=== PATIENT | female | born 1995 | race Caucasian/White ===

== ENCOUNTER 2018-05-06 09:50 | Emergency (ER) | payer OTHER ==
--- NOTE | 2018-05-06 10:13 | ER Document Report ---
ED Medical Screen (RME) - General Chief Complaint: Chemical Exposure in Eye Stated Complaint: EYE IRRITATION Time Seen by Provider: 05/06/18 10:09 Mode of Arrival: Ambulatory Information source: Patient Notes: 22-year-old female presents with left eye pain after using a new contact solution. Patient was seen at [facility] yesterday and started on artificial tears and cyclopentolate ophthalmic drops. Patient does report having left her contact in her eye for 48 hours prior to using the solution. I have greeted and performed a rapid initial assessment of this patient. A comprehensive ED assessment and evaluation of the patient, analysis of test results and completion of medical decision making process we will be contacted by additional ED providers. General; appears uncomfortable Eyes; erythematous left conjunctive a Respiratory; no respiratory distress TRAVEL OUTSIDE OF THE [place] IN LAST 30 DAYS: No - HPI Onset: Yesterday Onset/Duration: Sudden Quality of pain: Burning, Throbbing Associated Symptoms: Headache, Other - Photophobia. Blurred vision Exacerbated by: Denies Relieved by: Denies Similar symptoms previously: No Recently seen / treated by doctor: No - Related Data Smoking: Non-smoker Frequency of alcohol use: None Drug Abuse: None Allergies/Adverse Reactions: No Known Allergies Allergy (Unverified 05/06/18 09:52) Past Medical History Renal/ Medical History: Denies: Hx Peritoneal Dialysis Physical Exam - Vital signs Vitals: Temp Pulse Resp BP Pulse Ox 98.2 F 85 16 126/90 H 99 05/06/18 09:55 05/06/18 09:55 05/06/18 09:55 05/06/18 09:55 05/06/18 09:55 Course - Vital Signs Vital signs: Temp Pulse Resp BP Pulse Ox 98.2 F 85 16 126/90 H 99 05/06/18 09:55 05/06/18 09:55 05/06/18 09:55 05/06/18 09:55 05/06/18 09:55
[2018-05-06] MEDS ORDERED: TETRACAINE HCL 0.5% OPH SOLN 4 ML OS ONE (10:15)
--- NOTE | 2018-05-06 10:26 | ER Document Report ---
ED General - General Chief Complaint: Chemical Exposure in Eye Stated Complaint: EYE IRRITATION Time Seen by Provider: 05/06/18 10:09 Mode of Arrival: Ambulatory TRAVEL OUTSIDE OF THE [place] IN LAST 30 DAYS: No - HPI Notes: Patient is a 22-year-old female with no significant past medical history who presents to the ED complaining of chemical burn to her left eye. Patient states that hydrogen peroxide was used to clean her contact lens, but she did not thoroughly clean it prior to putting it in her eye. Patient states that she noticed burning immediately to the left eye. Patient states that she was evaluated at [facility] emergency department yesterday and was placed on artificial tears as well as cyclopentolate. Patient states that she does continue to have pain to the left eye with redness and decrease in vision. She denies any drug allergies. Denies any headache, fever, head injury, neck pain, URI, sore throat , chest pain, palpitations, syncope, cough, shortness of breath, wheeze, dyspnea , abdominal pain, nausea/vomiting/diarrhea, urinary retention, dysuria, hematuria, numbness/tingling, muscle paralysis/weakness, or rash. - Related Data Allergies/Adverse Reactions: No Known Allergies Allergy (Verified 05/06/18 10:40) Past Medical History - General Information source: Patient - Social History Smoking Status: Current Some Day Smoker Frequency of alcohol use: None Drug Abuse: None Family History: Reviewed & Not Pertinent Patient has suicidal ideation: No Patient has homicidal ideation: No Renal/ Medical History: Denies: Hx Peritoneal Dialysis Review of Systems - Review of Systems -: Yes All other systems reviewed and negative Physical Exam - Vital signs Vitals: Temp Pulse Resp BP Pulse Ox 98.2 F 85 16 126/90 H 99 05/06/18 09:55 05/06/18 09:55 05/06/18 09:55 05/06/18 09:55 05/06/18 09:55 - Notes Notes: PHYSICAL EXAMINATION: GENERAL: Well-appearing, well-nourished and in no acute resp distress. Covering left eye with cool compress currently. A&Ox4 HEAD: Atraumatic, normocephalic. EYES: Pupils equal round and reactive to light, extraocular movements intact, sclera anicteric, conjunctiva left shows episcleritis b/l w/teary discharge no matting. Non-tender to palp of the globe and eye itself. No surrounding erythema or swelling noted. Wood's lamp/flourescein: No obvious abrasion, laceration, ulceration, or sharri sign noted. There is scant scattered minimal uptake noted, however. No obvious foreign body appreciated. ENT: EAC clear b/l. TM's intact b/l without erythema, fluid, or perforation. Nares patent and without discharge. oropharynx clear without exudates. No tonsilar hypertrophy or erythema. Moist mucous membranes. No sinus tenderness. Uvula midline. No palatine shift. No airway compromise. No drooling or hoarseness. NECK: Normal range of motion, supple without lymphadenopathy. No rigidity/ meningismus. LUNGS: Breath sounds clear to auscultation bilaterally and equal. No wheezes rales or rhonchi. HEART: Regular rate and rhythm without murmurs, rubs, gallops. NEUROLOGICAL: Cranial nerves grossly intact. Normal speech, normal gait. Normal sensory, motor exams PSYCH: Normal mood, normal affect. SKIN: Warm, Dry, normal turgor, no rashes or lesions noted. - HEENT Visual acuity- Right eye: 20/40 Visual acuity- Left eye: 20/200 Visual acuity- Both eyes: 20/40 Corrective lenses worn: No Course - Re-evaluation Re-evalutation: 05/06/18 10:[address] Kitchen who is in agreement with disposition and plan. Patient is an afebrile, well-hydrated, 22-year-old female who presents to the ED with mild acid chemical burn to the left eye. Vitals are acceptable. PE is otherwise unremarkable. Patient is already on artificial tears, cyclopentolate , and we will add Besivance to her current regimen. Tetracaine did improve symptoms. See eye exam. Low suspicion for any retained corneal or lid foreign body, deep space infection including orbital cellulitis/abscess, acute glaucoma , penetrating globe injury, retinal detachment, meningitis, sepsis, fracture, ulceration, compartment syndrome. Conservative measures otherwise for symptoms with proper handwashing. Recheck with your PCM in 3-5 days. Schedule a f/u with Ophthalmology this week. Return to the ED with any worsening/concerning symptoms otherwise as reviewed in discharge. Patient is in agreement. - Vital Signs Vital signs: Temp Pulse Resp BP Pulse Ox 98.2 F 85 16 126/90 H 99 10/07/18 09:55 05/06/18 09:55 05/06/18 09:55 05/06/18 09:55 05/06/18 09:55 Procedures - Eye Procedure Left Time completed: 10:35 - no complications. pt tolerated proc well Eye Irrigated w/ Saline (ccs): 20 Alcaine Drops Administered: Yes - tetracaine Acular drops administered: Left Antibiotic Oinment/Drps Admin: Left eye Discharge - Discharge Clinical Impression: Acid chemical burn of left eye Condition: Stable Disposition: HOME, SELF-CARE Additional Instructions: Keep eyes clean Avoid scratching/touching eyes Wash hands regularly Use eye drops as directed Maintain adequate fluid intake tylenol/ibuprofen as needed over the counter cold medication as needed for symptoms F/u: with your PCM in 3-5 days for a recheck Call ophthalmology tomorrow to schedule an appointment for further evaluation and management Return to the ED with any worsening symptoms and/or development of fever, headache, changes in vision, eye pain, worsening eye redness, redness around the eyes, purulent discharge, sore throat, facial swelling, neck pain/stiffness , chest pain, palpitations, syncope, shortness of breath, trouble breathing, abdominal pain, n/v/d, blood in stool/urine, dysuria, or other worsening symptoms that are concerning to you. Forms: Elevated Blood Pressure Referrals: MEL BAKER MD [ACTIVE STAFF] - 05/08/18 SHALINI SPEARS DO [ACTIVE STAFF] - 05/08/18
[2018-05-06] MEDS ORDERED: BESIFLOXACIN HCL 0.6% OPH SUSP 5 ML BOTTLE OS PRN (10:41)
[2018-05-06 11:13] VITALS: BP 101/60
== END 2018-05-06 11:16 | disposition home or self-care (01) ==
LOC: ER 09:50
DX: T49.0X1A Poisoning by local antifungal, anti-infective and anti-inflammatory drugs, accidental (unintentional), initial encounter (principal); T26.82XA Corrosions of other specified parts of left eye and adnexa, initial encounter; Y92.009 Unspecified place in unspecified non-institutional (private) residence as the place of occurrence of the external cause; F17.200 Nicotine dependence, unspecified, uncomplicated
CPT/HCPCS: 99283; J3490

== ENCOUNTER 2019-07-23 05:22 | Day surgery (SDC) | payer OTHER ==
[2019-07-23 05:55] LABS: HEMATOCRIT 38.9 % (36.0-47.0); HEMOGLOBIN 13.4 g/dL (12.0-15.5); MEAN CORPUSCULAR HEMOGLOBIN 29.7 pg (27.0-33.4); MEAN CORPUSCULAR HGB CONC 34.4 g/dL (32.0-36.0); MEAN CORPUSCULAR VOLUME 86 fl (80-97); PLATELET COUNT 316 10^3/uL (150-450); RED BLOOD COUNT 4.51 10^6/uL (3.72-5.28); RED CELL DISTRIBUTION WIDTH 12.5 % (11.5-14.0); WHITE BLOOD COUNT 7.6 10^3/uL (4.0-10.5)
[2019-07-23 06:40] LABS: APPEARANCE,URINE SLIGHTLY-CLOUDY; BILIRUBIN,URINE NEGATIVE (NEGATIVE); COLOR,URINE YELLOW; GLUCOSE, URINE NEGATIVE (NEGATIVE); KETONES,URINE NEGATIVE (NEGATIVE); LEUKOCYTE ESTERASE,URINE SMALL (NEGATIVE); NITRITE,URINE NEGATIVE (NEGATIVE); PROTEIN,URINE NEGATIVE (NEGATIVE); URINE SPECIFIC GRAVITY 1.019; UROBILINOGEN,URINE NEGATIVE mg/dL (<2.0)
[2019-07-23] MEDS ORDERED: DEXAMETHASONE SOD PHOSPHATE INJ 4 MG/1 ML VIAL ONE (06:42)
[2019-07-23] MEDS ORDERED: FENTANYL CITRATE INJ/PF 100 MCG/2 ML AMPUL ONE (06:42)
[2019-07-23] MEDS ORDERED: MIDAZOLAM 2 MG/2 ML INJ ONE (06:42)
[2019-07-23] MEDS ORDERED: PROPOFOL INJ 200 MG/20 ML VIAL IV ONE (06:42)
[2019-07-23] MEDS ORDERED: ONDANSETRON HCL INJ/PF 4 MG/2 ML SDV ONE (06:42)
[2019-07-23] MEDS ORDERED: MEPERIDINE HCL/PF INJ 25 MG/1 ML DISP.SYRIN IV PRN (08:25)
[2019-07-23] MEDS ORDERED: MORPHINE SULFATE 10 MG/ML INJ IV PRN (08:25)
[2019-07-23] MEDS ORDERED: PROMETHAZINE HCL INJ 25 MG/1 ML VIAL IV PRN ×2 (08:25)
[2019-07-23] MEDS ORDERED: DIPHENHYDRAMINE HCL 50 MG/ML VIAL IV PRN (08:25)
[2019-07-23] MEDS ORDERED: FENTANYL CITRATE INJ/PF 100 MCG/2 ML AMPUL IV PRN ×3 (08:25)
[2019-07-23] MEDS ORDERED: IBUPROFEN 800 MG TABLET PO PRN (08:42)
[2019-07-23] MEDS ORDERED: RINGERS SOLUTION,LACTATED 1,000 ML IV PRN (08:42)
[2019-07-23] MEDS ORDERED: KETOROLAC TROMETHAMINE INJ/PF 30 MG/1 ML SDV IV PRN (08:42)
[2019-07-23] MEDS ORDERED: OXYCODONE-ACETAMINOPHEN 5-325 MG TABLET PO PRN ×2 (08:42)
--- NOTE | 2019-07-23 08:48 | Operative Report ---
Operative Report DATE OF SURGERY: 07/23/19 PREOPERATIVE DIAGNOSIS: Patient requests suction D&C for miscarriage POSTOPERATIVE DIAGNOSIS: Same OPERATION: Suction D&C SURGEON: STEFANY BENITO ANESTHESIA: GA TISSUE REMOVED OR ALTERED: Uterine contents COMPLICATIONS: None ESTIMATED BLOOD LOSS: 20 cc INTRAOPERATIVE FINDINGS: Uterus sounded to 10 cm before the case and 8 cm after the case PROCEDURE: Patient was taken the OR and placed in supine position. Anesthesia was induced. She is placed in a dorsolithotomy position using Dav stirrups. Her perineum and vagina were prepared and draped in sterile fashion. She had just voided and catheter was not used. A weighted speculum was placed in the vagina and the anterior lip of the cervix was grasped with a tenaculum. The uterus was sounded before and after the case. 10 cm before and an 8 cm after the case. Cervix was gently dilated. This allowed a size 8 curved curette to be used to evacuate the uterine contents. A gentle sharp curettage was then used after the case and no retained products were noted. All instruments were removed. A small laceration at the anterior cervix from the tenaculum was closed with a [id number] suture of 3-0 chromic. The weighted speculum was removed. She is placed back in supine position. She was brought out of anesthesia and taken to recovery room in stable condition.
--- NOTE | 2019-07-23 08:51 | Discharge Summary ---
Discharge Summary (SDC) - Discharge Final Diagnosis: Miscarriage Date of Surgery: 07/23/19 Discharge Date: 07/23/19 Condition: Good Prescriptions: Oxycodone HCl/Acetaminophen [Percocet 5-325 mg Tablet] 1 tab PO Q4HP PRN #20 tablet PRN Reason: Referrals: LUDY DOAN PA-C [Primary Care Provider] - Discharge Diet: Regular Discharge Activity: Pelvic Rest, Slowly Increase Activity Report the Following to Your Physician Immediately: Fever over 101 Degrees, Unusual Bleeding
[2019-07-23 10:40] VITALS: BP 139/93
== END 2019-07-23 10:25 | disposition home or self-care (01) ==
LOC: OROUT 05:22
PROVIDERS: ATTEND Obstetrics & Gynecology
DX: O02.1 Missed abortion (principal); Z87.891 Personal history of nicotine dependence; O03.4 Incomplete spontaneous abortion without complication
CPT/HCPCS: 86900; 86901; 36415; 86850; 85027; 81001; 88305 ×2; 59820; J2250; J1100; J3010; J2405; J2704; 1965

== ENCOUNTER 2020-08-14 03:44 | Inpatient (IN) | payer BC ==
[2020-08-14] MEDS ORDERED: OXYTOCIN/0.9 % SODIUM CHLORIDE 30 UNIT/500 ML RTUINJ ONE (04:40)
[2020-08-14] MEDS ORDERED: OXYTOCIN 10 UNIT/ML VIAL ONE (04:40)
[2020-08-14] MEDS ORDERED: LIDOCAINE 1% INJ-PF (10 MG/ML) 30 ML SDV ONE (04:40)
[2020-08-14] MEDS ORDERED: MISOPROSTOL 0.2 MG TABLET ONE (04:40)
[2020-08-14] MEDS ORDERED: DINOPROSTONE 10 MG VAGINAL INSERT.SR ONE (04:41)
[2020-08-14] MEDS ORDERED: RINGERS SOLUTION,LACTATED 1,000 ML IV PRN (05:02)
[2020-08-14] MEDS ORDERED: DINOPROSTONE 10 MG VAGINAL INSERT.SR PV PRN (05:02)
[2020-08-14] MEDS ORDERED: RINGERS SOLUTION,LACTATED 1,000 ML IV ONE (05:02)
[2020-08-14 06:13] LABS: APPEARANCE,URINE SLIGHTLY-CLOUDY; BILIRUBIN,URINE NEGATIVE (NEGATIVE); COLOR,URINE YELLOW; GLUCOSE, URINE NEGATIVE (NEGATIVE); KETONES,URINE NEGATIVE (NEGATIVE); LEUKOCYTE ESTERASE,URINE TRACE (NEGATIVE); NITRITE,URINE NEGATIVE (NEGATIVE); PROTEIN,URINE NEGATIVE (NEGATIVE); URINE SPECIFIC GRAVITY 1.016; UROBILINOGEN,URINE NEGATIVE mg/dL (<2.0)
[2020-08-14 06:13] LABS: ABSOLUTE BASOPHILS # (AUTO) 0.1 10^3/uL (0.0-0.2); ABSOLUTE EOSINOPHILS # (AUTO) 0.1 10^3/uL (0.0-0.6); ABSOLUTE LYMPHOCYTES (AUTO) 2.2 10^3/uL (0.5-4.7); ABSOLUTE MONOCYTES (AUTO) 1.1 10^3/uL (0.1-1.4); ABSOLUTE NEUT (AUTO) 7.5 10^3/uL (1.7-8.2); BASOPHILS % (AUTO) 0.5 % (0-2); EOSINOPHILS % (AUTO) 0.9 % (0-6); HEMATOCRIT 34.4 % (36.0-47.0); HEMOGLOBIN 11.9 g/dL (12.0-15.5); LYMPHOCYTES % (AUTO) 20.3 % (13-45); MEAN CORPUSCULAR HEMOGLOBIN 29.9 pg (27.0-33.4); MEAN CORPUSCULAR HGB CONC 34.4 g/dL (32.0-36.0); MEAN CORPUSCULAR VOLUME 87 fl (80-97); PLATELET COUNT 244 10^3/uL (150-450); RED BLOOD COUNT 3.96 10^6/uL (3.72-5.28); RED CELL DISTRIBUTION WIDTH 13.9 % (11.5-14.0); SEGMENTED NEUTROPHILS % (AUTO) 68.3 % (42-78); TOTAL CELLS COUNTED % (AUTO) 100 %
[2020-08-14 06:26] LABS: ALBUMIN 3.3 g/dL (3.5-5.0); ALKALINE PHOSPHATASE 100 U/L (38-126); ANION GAP 7 (5-19); ASPARTATE AMINO TRANSFERASE 17 U/L (14-36); BILIRUBIN,DIRECT 0.2 mg/dL (0.0-0.4); BILIRUBIN,TOTAL 0.3 mg/dL (0.2-1.3); BLOOD UREA NITROGEN 8 mg/dL (7-20); CALCIUM 9.3 mg/dL (8.4-10.2); CARBON DIOXIDE 21 mmol/L (22-30); CHLORIDE 107 mmol/L (98-107); GLUCOSE 86 mg/dL (75-110); URIC ACID 4.8 mg/dL (2.5-6.2)
[2020-08-14 06:36] LABS: URINE AMPHETAMINES SCREEN NEGATIVE; URINE BARBITURATES SCREEN NEGATIVE; URINE BENZODIAZEPINES SCREEN NEGATIVE; URINE COCAINE SCREEN NEGATIVE; URINE MARIJUANA (THC) SCREEN NEGATIVE; URINE METHADONE SCREEN NEGATIVE; URINE PHENCYCLIDINE SCREEN NEGATIVE
--- NOTE | 2020-08-14 08:32 | Admission Physical ---
Datetime Report Generated by CPN: 08/14/2020 08:32 CURRENT ADMISSION Indication for Induction: Gestational HTN Admit Impression : Term, Intrauterine Admit Plan: Admit to Unit; Initiate Labor Induction Protocol ALLERGIES Medication Allergies: Yes Medication Allergies: amoxicillin (08/14/2020) Latex: No Latex Allergies OBSTETRICAL HISTORY EDC: 08/27/2020 00:00 : 2 Para: 0 Gestational Diabetes: No Rh Sensitization: No Incompetent Cervix: No TOÑO: No Infertility: No ART Treatment: No Uterine Anomaly: No IUGR: No Hx Previous C/S: No Macrosomia: No Hx Loss/Stillborn: No PIH: No Hx : No Placenta Previa/Abruption: No Depression/PP Depression: No PTL/PROM: No Post Hemorrhage: No Current Procedures: Ultrasound; NST SEE RECORDS Alcohol: No Marijuana : No Cocaine: No Other Illicit Drugs: No Cigarettes: Former Smoker. [id number] Cigarette Frequency: < 5 per day MEDICAL HISTORY Diabetes: No Blood Transfusion: No Pulmonary Disease (Asthma, TB): Yes Breast Disease: No Hypertension: No Dietary Services Director Surgery: No Heart Disease: No Hosp/Surgery: Yes Autoimmune Disorder: No Anesthetic Complications: No Kidney Disease: No Abnormal Pap Smear: No Neuro/Epilepsy: No Psychiatric Disorders: No Other Medical Diseases: No Hepatitis/Liver Disease: No Significant Family History: No Varicosities/Phlebitis: No Trauma/Violence : No Thyroid Dysfunction: No Medical History Comments: D_c 2019, wisdom teeth 2011 INFECTIOUS HISTORY Gonorrhea: No Genital Herpes: No Chlamydia: No Tuberculosis: No Syphilis: No Hepatitis: No HIV/AIDS Exposure: No Rash or Viral Illness: No HPV: No PHYSICAL EXAM General: Normal HEENT: Normal Neurologic: Normal Thyroid: Normal Heart: Normal Lungs: Normal Breast: Normal Back: Normal Abdomen: Normal Genitourinary Exam: Normal Extremities: Normal DTRs: Normal Pelvic Type: Adequate Vital Signs: Reviewed MEMBRANES Membranes: Intact FETUS A Monitoring: External US FHR- Baseline: 125 Variability: Moderate 6-25bpm Accelerations: 15X15 Decelerations: None Admit Comment: at 38.1 wks presented early this morning for cervical ripening d/t GHTN. Elevated BP's in the office since 35 wks. Pt on labetalol 200 mg PO BID. States did have a headache this moring, better now. GBS negative. EFW by u/s 6+15 and Vtx on 08/12/20. Ve in the office then was 50/-1 by my exam. Cervidil placed at 0452 this morning. Pt attempting to rest now, denies contractions. Attending MD today is Dr Hummel, aware of pt status, agrees w/ plan of care PLANS FOR LABOR AND DELIVERY Labor and Delivery: None Pain Management: Epidural Feeding Preference: Breast Circumcision: N/A INFORMED CONSENT Assignment: Delfina Hummel MD Signature: with User ID: [email or web address] : with User ID: [email or web address]
[2020-08-14] MEDS ORDERED: LABETALOL HCL 200 MG TABLET ONE ×2 (09:42→21:36)
[2020-08-14] MEDS: LABETALOL HCL 200 MG TABLET PO SCH (09:44)
--- NOTE | 2020-08-14 14:43 | L&D Progress Notes ---
PROGRESS NOTES Datetime Report Generated by CPN: 08/14/2020 14:42 PROGRESS NOTE Impression: Reassuring Heart Rate Plan: Continue Present Management; Induction Vital Signs : Reviewed Comment: Cervidil in place for IOL. Pt in the bed on her side w/ peanut ball between her legs. Does have mild headache, states it does not feel like a "BP" headache. Occassional was feeling some contractions but now only mild menstrual cramping. Position changes encouraged. LAST VAGINAL EXAM-NURSING Nursing Exam Dilitation: 1.0 Nursing Exam Effacement: 50 Nursing Exam Station: -2 MEMBRANES Membranes: Intact FETUS A FHR - Baseline: 145 Monitoring: External US Variability: Moderate 6-25bpm Accelerations: 15X15 Decelerations: None FHR Category: Category I SIGNATURE SIGNATURE: [id number];[id number] Assignment: Delfina Hummel MD Signature: with User ID: [email or web address] : with User ID: [email or web address]
[2020-08-14] MEDS ORDERED: ZOLPIDEM TARTRATE 5 MG TABLET ONE (21:37)
[2020-08-15] MEDS ORDERED: OXYTOCIN/0.9 % SODIUM CHLORIDE 30 UNIT/500 ML RTUINJ IV PRN ×2 (00:02→14:06)
[2020-08-15] MEDS ORDERED: PROMETHAZINE HCL INJ 25 MG/1 ML VIAL ONE (05:26)
[2020-08-15] MEDS ORDERED: NALBUPHINE HCL INJ 10 MG/1 ML AMPULE ONE ×2 (05:26→05:33)
[2020-08-15] MEDS ORDERED: NALBUPHINE HCL INJ 10 MG/1 ML AMPULE IV ONE (05:27)
[2020-08-15] MEDS ORDERED: PROMETHAZINE HCL INJ 25 MG/1 ML VIAL IV ONE (05:28)
[2020-08-15] MEDS: LABETALOL HCL 200 MG TABLET PO SCH ×3 (07:15→21:09)
[2020-08-15] MEDS ORDERED: LABETALOL HCL 200 MG TABLET ONE (09:11)
[2020-08-15] MEDS ORDERED: FENTANYL/BUPIVACAINE/NS/PF 300 MCG/150 ML RTUINJ EPI ONE (09:12)
[2020-08-15] MEDS ORDERED: EPHEDRINE SULFATE INJ 50 MG/1 ML AMPULE ONE (09:12)
[2020-08-15] MEDS ORDERED: ROPIVACAINE HCL 0.2% INJ/PF (2 MG/ML) 20 ML SDV ONE (09:12)
[2020-08-15] MEDS ORDERED: MAGNESIUM HYDROXIDE SUSP 30 ML UDCUP PO PRN (14:06)
[2020-08-15] MEDS ORDERED: MAG HYDROX/AL HYDROX/SIMETH SUSP 30 ML UDCUP PO PRN (14:06)
[2020-08-15] MEDS ORDERED: FAMOTIDINE 20 MG TABLET PO PRN (14:06)
[2020-08-15] MEDS ORDERED: PSEUDOEPHEDRINE HCL 30 MG TABLET PO PRN (14:06)
[2020-08-15] MEDS ORDERED: DIPH/PERTUSS(ACELL)/TETANUS VAC/PF 0.5 ML SYR (>=10YO) IM PRN (14:06)
[2020-08-15] MEDS ORDERED: VARICELLA VACC/PF (1350 UNIT/0.5 ML) 0.5 ML VIAL SUBCUT PRN (14:06)
[2020-08-15] MEDS ORDERED: ACETAMINOPHEN 650 MG SUPP.RECT PR PRN (14:06)
[2020-08-15] MEDS ORDERED: BENZOCAINE/MENTHOL AEROSOL SPRAY 56 ML TOP PRN (14:06)
[2020-08-15] MEDS ORDERED: GLYCERIN/WITCH HAZEL LEAF 1 EACH MED..WIPE TP PRN (14:06)
[2020-08-15] MEDS ORDERED: ZOLPIDEM TARTRATE 5 MG TABLET PO PRN (14:06)
[2020-08-15] MEDS ORDERED: MEASLES,MUMPS&RUBELLA VACC/PF 0.5 ML VIAL SUBCUT PRN (14:06)
[2020-08-15] MEDS ORDERED: ACETAMINOPHEN 325 MG TABLET PO PRN (14:06)
[2020-08-15] MEDS ORDERED: DIPHENHYDRAMINE HCL 25 MG CAPSULE PO PRN (14:06)
[2020-08-15] MEDS ORDERED: ACETAMINOPHEN WITH CODEINE #3 TABLET PO PRN (14:06)
[2020-08-15] MEDS ORDERED: DIBUCAINE 1% OINTMENT 28 GM TP PRN (14:06)
[2020-08-15] MEDS ORDERED: BENZOCAINE/MENTHOL AEROSOL SPRAY 56 ML ONE (15:37)
--- NOTE | 2020-08-15 16:23 | Delivery Summary ---
Del Sum A-C Datetime Report Generated by CPN: 08/15/2020 16:22 DELIVERY PERSONNEL DELIVERY PERSONNEL: [id number] Delivery Doctor:: Lori Gomes CNM Labor and Delivery Nurse:: Concha Agarwal RNmiller helper distillery Nurse:: Katelynn Bales RN Nursery Nurse:: Karlee Medrano RN Manager Public/GUM SPRAYER: Lyndsay López, BLOOD BANK CALENDAR CONTROL CLERK MATERNAL INFORMATION Delivery Anesthesia: Epidural Medications After Delivery: Pitocin 30 Units in 500ml NS/D5W Delivery QBL: 200 Maternal Complications: None Provider Comments: of VFI, delivered BOBO, vigorous and crying, placed on pts abdoman in stable condition. Cord clamped and cut, cord blood collected. Placenta S/C/I, ff w/ decreased lochia. IV Pitocin infusing. Vaginal laceration repaired. QBL 300 ml. Apgars 9,9. Placenta to pathology d/t hx GHTN. Pt and baby in stable condition, skin to skin. Plans to breastfeed. Attending MD is Dr Brito LABOR SUMMARY EDC: 08/27/2020 00:00 No. Babies in Womb: 1 Attempted: No Labor Anesthesia: Epidural LABOR INFORMATION Reason for Induction: Gestational Hypertension; Pre-Eclampsia Onset of Labor: 08/15/2020 11:00 Complete Dilatation: 08/15/2020 12:59 Cervical Ripening Agents: Cervidil Oxytocin: Induction Group B Beta Strep: negative (Annotations: Data stored by N on behalf of user) MEMBRANES Membranes Rupture Method: Spontaneous Rupture of Membranes: 08/15/2020 11:00 Length of Rupture (hr): 2.80 Amniotic Fluid Color: Clear Amniotic Fluid Amount: Small STAGES OF LABOR Stage 1 hr: 1 Stage 1 min: 59 Stage 2 hr: 0 Stage 2 min: 49 Stage 3 hr: 0 Stage 3 min: 3 Total Time in Labor hr: 2 Total Time in Labor min: 51 VAGINAL DELIVERY Episiotomy: None Laceration #1: Vaginal Laceration Extension #1: First Degree Other Laceration: L sidewall Laceration Repair: Yes Laceration Repair Note: first degree left vaginal sidewall repaired w/ 3.0 vicryl in usual fashion, pt tolerated well Sponge Count Correct: Yes Sharps Count Correct: Yes CSECTION DELIVERY Primary Indication: N/A Secondary Indication: N/A CSection Incidence: N/A Labor: N/A Elective: N/A CSection Incision: N/A BABY A INFORMATION Delivery Date/Time: 08/15/2020 13:48 Method of Delivery: Vaginal Nurse Controlled Delivery: No Born in Route : No : N/A Forceps: N/A Vacuum Extraction: N/A Shoulder Dystocia : No PRESENTATION/POSITION BABY A Presentation: Cephalic Cephalic Presentation: Vertex Vertex Position: Right Occipital Anterior Breech Presentation: N/A PLACENTA INFORMATION BABY A Placenta Delivery Time : 08/15/2020 13:51 Placenta Method of Delivery: Spontaneous Placenta Status: Delivered SCORES BABY A Heart Rate 1 min: >100 bpm Resp Effort 1 min: Good Cry Reflex Irritability 1 min: Cough or Sneeze or Pulls Away Muscle Tone 1 min: Active Motion Color 1 min: Body [place], Extremities Blue Resuscitation Effort 1 min: Tactile Stimulation SCORE 1 MIN: 9 Heart Rate 5 min: >100 bpm Resp Effort 5 min: Good Cry Reflex Irritability 5 min: Cough or Sneeze or Pulls Away Muscle Tone 5 min: Active Motion Color 5 min: Body [place], Extremities Blue Resuscitation Effort 5 min: N/A SCORE 5 MIN: 9 INFORMATION BABY A Gestational Age at Delivery: 38.2 Gestational Status: Early Term- 37- 38.6 Weeks Infant Outcome : Liveborn Condition : Stable Sex: Female IDENTIFICATION BABY A Infant Verification Date/Time: 08/15/2020 13:54 ID Band Number: [id number] Mother's Name Verified: Yes Infant RN Verifying : Sana Ellington SANDRA; ROEL Marshall CORD INFORMATION BABY A No. Cord Vessels: 3 Nuchal Cord : N/A Cord Blood Taken: Yes-For Storage (Mom's Blood type +) Suction: None BABY B INFORMATION : N/A SIGNATURES Assignment: Megan Brito MD Signature: with User ID: Darian : with User ID: [email or web address]
--- NOTE | 2020-08-15 16:23 | Birth Certificate Data ---
Cert Data Datetime Report Generated by CPN: 08/15/2020 16:22 CERTIFICATE DATA Delivery Provider: Lori Gomes CNM (08/14/2020 03:45:Katelynn Bales RN) 47a. Care: Yes (08/14/2020 03:45:Melodie Cai RN) 47b. Date of First Visit: 02/19/2020 00:00 (08/14/2020 03:45:Concha Agarwal RN) 47c. Date of Last Visit: 08/12/2020 00:00 (08/14/2020 03:45:Concha Agarwal RN) 47d. Number of Visits: 12 (08/14/2020 03:45:Concha Agarwal RN) 48a. Number of Prev Live Births: 0 (08/14/2020 03:45:Concha Agarwal RN) 48b. Now Livin (08/14/2020 03:45:Concha Agarwal RN) 48c. Live Births Now : 0 (08/14/2020 03:45:QS system process) 48e. Losses: 1 (08/14/2020 03:45:Concha Agarwal RN) RISK FACTORS IN THIS 49a. Diabetes: No (08/14/2020 03:45:Melodie Cai RN) 49b. Hypertension: Yes (08/14/2020 03:45:Beatrice Patino RN) Type of Hypertension: Gestational (PIH, Pre-eclampsia) (08/14/2020 03:45:Beatrice Patino RN) 49c. Previous Births: 0 (08/14/2020 03:45:Concha Agarwal RN) 49d. Stillborns: No (08/14/2020 03:45:Melodie Cai RN) 49d. IUGR: No (08/14/2020 03:45:Melodie Cai RN) 49e. Infertility Treatment: No (08/14/2020 03:45:Melodie Cai RN) 49f. Previous Cesareans: 0 (08/14/2020 03:45:Concha Agarwal RN) Mother's Height 50b. Height Inches: 67 (08/15/2020 16:05:QS system process) Mother's Weight 51a. Pre- Weight (lbs): 246 (08/14/2020 03:45:Concha Agarwal RN) 51b. Weight at Delivery (lbs): 277 (08/15/2020 16:05:QS system process) Infections Present/Treated 53a. Gonorrhea: No (08/14/2020 03:45:Melodie Cai RN) Results this Hospital Visit : Negative (08/14/2020 03:45:Melodie Cai RN) 53b. Syphilis: No (08/14/2020 03:45:Melodie Cai RN) Results this Hospital Visit: NONREACTIVE (08/14/2020 05:56:QS system process) 53c. Chlamydia: No (08/14/2020 03:45:Melodie Cai RN) Results this Hospital Visit: Negative (08/14/2020 03:45:Melodie Cai RN) 53d. Hepatitis B: No (08/14/2020 03:45:Melodie Cai RN) Results this Hospital Visit: Negative (08/14/2020 03:45:Melodie Cai RN) 53e. Hepatitis C: Negative (08/14/2020 03:45:Melodie Cai RN) 53h. Mother Tested for HBsAG: Yes (08/14/2020 03:45:Melodie Cai RN) 53i. Date Tested: 02/19/2020 00:00 (08/14/2020 03:45:Melodie Cai RN) 53j. Test Result: Negative (08/14/2020 03:45:Melodie Cai RN) Obstetric Procedures 54a, b, c. Obstetric Procedures: Ultrasound; NST (08/14/2020 03:45:Melodei Cai RN) Cigarette Smoking Cigarette Smoking: Former Smoker. [id number] (08/14/2020 03:45:Melodie Cai RN) 55a. 3 Months Before Preg - Ci (08/14/2020 03:45:Melodie Cai RN) 55b. 1st Trimester of Preg- Ci (08/14/2020 03:45:Melodie Cai RN) 55c. 2nd Trimester of Preg- Ci (08/14/2020 03:45:Melodie Cai RN) 55d. 3rd Trimester of Preg- Ci (08/14/2020 03:45:Melodie Cai RN) Onset of Labor 56a. PROM >12 Hrs: 2.80 (08/14/2020 03:45:QS system process) 56b. Precipitous Labor <3 Hrs: 2 (08/14/2020 03:45:QS system process) 56c. Prolonged Labor > 20 Hrs: 2 (08/14/2020 03:45:QS system process) 57a. Induction of Labor: Induction (08/14/2020 03:45:Concha Agarwal RN) 57a. Induction of Labor: Cervidil (08/14/2020 04:53:Melodie Cai RN) 57c. Non-Vertex Presentation A: Vertex (08/14/2020 03:45:Katelynn Bales RN) 57g. Moderate/Heavy Meconium: Clear (08/14/2020 03:45:Katelynn Bales RN) 57h. Intolerance of Labor: N/A (08/14/2020 03:45:Katelynn Bales RN) : N/A (08/14/2020 03:45:Katelynn Bales RN) 57i. Epidural/Spinal Anesthesia: Epidural (08/14/2020 03:45:Concha Agarwal RN) Method of Delivery 58a. Forceps - Unsuccessful A: N/A (08/14/2020 03:45:Katelynn Bales RN) 58b. Vacuum - Unsuccessful A: N/A (08/14/2020 03:45:Katelynn Bales RN) 58c. Presentation at 58c. Presentation at - A : Vertex (08/14/2020 03:45:Katelynn Bales RN) 58c. Presentation at - A : N/A (08/14/2020 03:45:Katelynn Bales RN) 58c. Presentation at - A : Cephalic (08/14/2020 03:45:Katelynn Bales RN) Final Route and Method of Del 58d. Baby A Route/Delivery: Vaginal (08/15/2020 13:48:Concha Agarwal RN) 58e. Trial of Labor Attempted: No (08/14/2020 03:45:Concha Agarwal RN) 58e. Trial of Labor Attempted A: N/A (08/14/2020 03:45:Katelynn Bales RN) 58e. Trial of Labor Attempted B: N/A (08/14/2020 03:45:Concha Agarwal RN) Maternal Morbidity 59b. 3rd or 4th Degree Lacs: Vaginal (08/14/2020 03:45:Katelynn Bales RN) 59b. 3rd or 4th Degree Lacs: First Degree (08/14/2020 03:45:Katelynn Bales RN) 59b. 3rd or 4th Degree Lacs: L sidewall (08/14/2020 03:45:Katelynn Bales RN) 61. GA at Delivery Baby A: 38.2 (08/14/2020 03:45:Katelynn Bales RN) : Early Term- 37- 38.6 Weeks (08/14/2020 03:45:QS system process) 62a. 5 Minute Baby A: 9 (08/14/2020 03:45:QS system process)
[2020-08-15] MEDS: IBUPROFEN 800 MG TABLET PO SCH ×2 (17:20→21:05)
[2020-08-15] MEDS: FERROUS SULFATE 325 MG TABLET PO SCH (17:21)
[2020-08-15] MEDS: DOCUSATE SODIUM 100 MG CAPSULE PO SCH (17:21)
[2020-08-16 06:04] LABS: HEMATOCRIT 31.3 % (36.0-47.0); HEMOGLOBIN 10.9 g/dL (12.0-15.5); MEAN CORPUSCULAR HEMOGLOBIN 30.2 pg (27.0-33.4); MEAN CORPUSCULAR HGB CONC 34.9 g/dL (32.0-36.0); MEAN CORPUSCULAR VOLUME 87 fl (80-97); PLATELET COUNT 196 10^3/uL (150-450); RED BLOOD COUNT 3.62 10^6/uL (3.72-5.28); RED CELL DISTRIBUTION WIDTH 13.9 % (11.5-14.0); WHITE BLOOD COUNT 10.3 10^3/uL (4.0-10.5)
[2020-08-16] MEDS: IBUPROFEN 800 MG TABLET PO SCH ×2 (06:13→13:19)
[2020-08-16] MEDS: DOCUSATE SODIUM 100 MG CAPSULE PO SCH (09:58)
[2020-08-16] MEDS: FERROUS SULFATE 325 MG TABLET PO SCH (09:58)
--- NOTE | 2020-08-16 09:58 | PDOC PROGRESS REPORT ---
Subjective-OB Progress Note for:: 08/16/20 - PP Day #1, doing well, desires to go home later on today if possible, IOL for GHTN, on PO Labetalol, BP's good this morning. A+, Rubella Immune, Physical Exam (OB) Vital Signs: Temp Pulse Resp BP Pulse Ox 98.0 F 81 18 129/74 H 100 08/16/20 07:10 08/16/20 07:10 08/16/20 07:10 08/16/20 07:10 08/16/20 07:10 Intake & Output 08/15/20 08/16/20 08/17/20 06:59 06:59 06:59 Output Total 200 Balance -200 - General General Appearance: Appears well, Alert In distress: None - PIH/Pre-Eclampsia Clonus: Negative Headache: Absent Epigastric Pain: No Visual Changes: No - Dressing Removed: No - Maternal Morbidity 59. Maternal Morbidity (serious complications experinced by the mother associated with labor and delivery: None of the above - Lochia Lochia Amount: Scant < 10 ml Lochia Color: Rubra/Red - Abdomen Description: Soft, Round Hernia Present: No Fundal Description: Firm, Midline Fundal Height: u/u - u/2 - Respiratory Respiratory Status: No respiratory distress - Abdominal Inspection: Normal Distension: No distension - Genitourinary Genitourinary Note: voiding - Extremities Upper extremity: Normal inspection Lower extremities: Edema - Neurological Cognition: Normal Orientation: AAOx4 - Psychological Associated symptoms: Normal affect, Normal mood - Skin Skin Temperature: Warm Skin Moisture: Dry Objective-Diagnostic Laboratory: 08/16/20 05:50 08/14/20 05:56 08/16/20 05:50 WBC 10.3 RBC 3.62 L Hgb 10.9 L Hct 31.3 L MCV 87 MCH 30.2 MCHC 34.9 RDW 13.9 Plt Count 196 Assessment and Plan(PN) - Assessment and Plan (1) (normal spontaneous vaginal delivery) Is this a current diagnosis for this admission?: Yes (2) 38 weeks gestation of Is this a current diagnosis for this admission?: Yes (3) Gestational hypertension Qualifiers: Trimester: third trimester Qualified Code(s): O13.3 - Gestational [-induced] hypertension without significant proteinuria, third trimester Is this a current diagnosis for this admission?: Yes Plan:: will d/c home for later on today. Pt may nest overnight if needed. - Time Spent with Patient Time with patient: Less than 15 minutes Medications reviewed and adjusted accordingly: Yes - Disposition Anticipated Discharge Disposition: Home, Self Care Anticipated Discharge Timeframe: within 24 hours
[2020-08-16] MEDS: LABETALOL HCL 200 MG TABLET PO SCH (09:59)
[2020-08-16] MEDS ORDERED: SENNOSIDES/DOCUSATE 8.6-50 MG 1 EACH TABLET PO SCH (10:00)
[2020-08-16] MEDS ORDERED: PRENATAL VITAMIN W DHA CAPSULE PO SCH (10:00)
[2020-08-16 11:56] VITALS: BP 123/75
--- NOTE | 2020-08-18 08:17 | PDOC DISCHARGE SUMMARY ---
Impression - Admit/DC Date/PCP Admission Date/Primary Care Provider: 08/14/20 03:44 STEFANY BENITO MD Discharge Date: 08/16/20 - Pt desires to go home PP [place] #1 - Discharge Diagnosis (1) (normal spontaneous vaginal delivery) Is this a current diagnosis for this admission?: Yes (2) 38 weeks gestation of Is this a current diagnosis for this admission?: Yes (3) Gestational hypertension Is this a current diagnosis for this admission?: Yes - Additional Information Resuscitation Status: Full Code Discharge Diet: As Tolerated, Regular Discharge Activity: Activity As Tolerated, No Lifting Over 10 Pounds, Pelvic Rest Referrals: STEFANY BENITO MD [Primary Care Provider] - Prescriptions: Ibuprofen [Motrin 800 mg Tablet] 800 mg PO Q8 #60 tablet Home Medications: Famotidine [Pepcid] 1 tab PO DAILY 08/14/20 Labetalol HCl [Normodyne 200 mg Tablet] 200 mg PO DAILY 08/14/20 Ire687/Iron Fum/Folic/Docusate [ 19 Tablet] 1 tab PO DAILY 08/14/20 Ibuprofen [Motrin 800 mg Tablet] 800 mg PO Q8 #60 tablet 08/16/20 HPI Reason(s) for Admission: Induction of Labor, PIH Intrapartum Procedure(s): Spontaneous Vaginal Delivery Hospital Course 59. Maternal Morbidity (serious complications experinced by the mother associated with labor and delivery: None of the above Results Laboratory Results: WBC 10.3 10^3/uL (4.0-10.5) 08/16/20 05:50 RBC 3.62 10^6/uL (3.72-5.28) L 08/16/20 05:50 Hgb 10.9 g/dL (12.0-15.5) L 08/16/20 05:50 Hct 31.3 % (36.0-47.0) L 08/16/20 05:50 MCV 87 fl (80-97) 08/16/20 05:50 MCH 30.2 pg (27.0-33.4) 08/16/20 05:50 MCHC 34.9 g/dL (32.0-36.0) 08/16/20 05:50 RDW 13.9 % (11.5-14.0) 08/16/20 05:50 Plt Count 196 10^3/uL (150-450) 08/16/20 05:50 Lymph % (Auto) 20.3 % (13-45) 08/14/20 05:56 Bartholomew % (Auto) 10.0 % (3-13) 08/14/20 05:56 Eos % (Auto) 0.9 % (0-6) 08/14/20 05:56 Baso % (Auto) 0.5 % (0-2) 08/14/20 05:56 Absolute Neuts (auto) 7.5 10^3/uL (1.7-8.2) 08/14/20 05:56 Absolute Lymphs (auto) 2.2 10^3/uL (0.5-4.7) 08/14/20 05:56 Absolute Monos (auto) 1.1 10^3/uL (0.1-1.4) 08/14/20 05:56 Absolute Eos (auto) 0.1 10^3/uL (0.0-0.6) 08/14/20 05:56 Absolute Basos (auto) 0.1 10^3/uL (0.0-0.2) 08/14/20 05:56 Seg Neutrophils % 68.3 % (42-78) 08/14/20 05:56 Sodium 135.1 mmol/L (137-145) L 08/14/20 05:56 Potassium 4.0 mmol/L (3.6-5.0) 08/14/20 05:56 Chloride 107 mmol/L (98-107) 08/14/20 05:56 Carbon Dioxide 21 mmol/L (22-30) L 08/14/20 05:56 Anion Gap 7 (5-19) 08/14/20 05:56 BUN 8 mg/dL (7-20) 08/14/20 05:56 Creatinine 0.56 mg/dL (0.52-1.25) 08/14/20 05:56 Est GFR ( Amer) > 60 (>60) 08/14/20 05:56 Est GFR (MDRD) Non-Af > 60 (>60) 08/14/20 05:56 Glucose 86 mg/dL (75-110) 08/14/20 05:56 Uric Acid 4.8 mg/dL (2.5-6.2) 08/14/20 05:56 Calcium 9.3 mg/dL (8.4-10.2) 08/14/20 05:56 Total Bilirubin 0.3 mg/dL (0.2-1.3) 08/14/20 05:56 Direct Bilirubin 0.2 mg/dL (0.0-0.4) 08/14/20 05:56 Neonat Total Bilirubin Not Reportable 08/14/20 05:56 Neonat Direct Bilirubin Not Reportable 08/14/20 05:56 Neonat Indirect Bili Not Reportable 08/14/20 05:56 AST 17 U/L (14-36) 08/14/20 05:56 ALT 12 U/L (<35) 08/14/20 05:56 Alkaline Phosphatase 100 U/L (38-126) 08/14/20 05:56 Lactate Dehydrogenase 143 U/L (120-246) 08/14/20 05:56 Total Protein 6.0 g/dL (6.3-8.2) L 08/14/20 05:56 Albumin 3.3 g/dL (3.5-5.0) L 08/14/20 05:56 Urine Color YELLOW 08/14/20 03:47 Urine Appearance SLIGHTLY-CLOUDY 08/14/20 03:47 Urine pH 6.0 (5.0-9.0) 08/14/20 03:47 Ur Specific Gould 1.016 08/14/20 03:47 Urine Protein NEGATIVE mg/dL (NEGATIVE) 08/14/20 03:47 Urine Glucose (UA) NEGATIVE mg/dL (NEGATIVE) 08/14/20 03:47 Urine Ketones NEGATIVE mg/dL (NEGATIVE) 08/14/20 03:47 Urine Blood NEGATIVE (NEGATIVE) 08/14/20 03:47 Urine Nitrite NEGATIVE (NEGATIVE) 08/14/20 03:47 Urine Bilirubin NEGATIVE (NEGATIVE) 08/14/20 03:47 Urine Urobilinogen NEGATIVE mg/dL (<2.0) 08/14/20 03:47 Ur Leukocyte Esterase TRACE (NEGATIVE) H 08/14/20 03:47 Urine Ascorbic Acid NEGATIVE (NEGATIVE) 08/14/20 03:47 Urine Opiates Screen NEGATIVE 08/14/20 03:47 Urine Methadone Screen NEGATIVE 08/14/20 03:47 Ur Barbiturates Screen NEGATIVE 08/14/20 03:47 Ur Phencyclidine Scrn NEGATIVE 08/14/20 03:47 Ur Amphetamines Screen NEGATIVE 08/14/20 03:47 U Benzodiazepines Scrn NEGATIVE 08/14/20 03:47 Urine Cocaine Screen NEGATIVE 08/14/20 03:47 U Marijuana (THC) Screen NEGATIVE 08/14/20 03:47 RPR NONREACTIVE (NONREACTIVE) 08/14/20 05:56 Blood Type A POSITIVE 08/14/20 05:56 Antibody Screen NEGATIVE 08/14/20 05:56 Plan Plan of Treatment: needs f/up for BP check in one week Time Spent: Less than 30 Minutes
== END 2020-08-16 15:50 | disposition home or self-care (01) | DRG 807 ==
LOC: LR 03:44 → 2S 08-15 16:05
PROVIDERS: ADMIT Obstetrics & Gynecology; ATTEND Obstetrics & Gynecology
PROC: 10E0XZZ Delivery of Products of Conception, External Approach (ICD-10-PCS; principal; 2020-08-15)
PROC: 0HQ9XZZ Repair Perineum Skin, External Approach (ICD-10-PCS; 2020-08-15)
PROC: 3E0P7VZ Introduction of Hormone into Female Reproductive, Via Natural or Artificial Opening (ICD-10-PCS; 2020-08-15)
DX: O13.4 Gestational [pregnancy-induced] hypertension without significant proteinuria, complicating childbirth (principal); Z37.0 Single live birth; O70.0 First degree perineal laceration during delivery; Z20.822 Contact with and (suspected) exposure to COVID-19; Z88.1 Allergy status to other antibiotic agents; Z87.891 Personal history of nicotine dependence; Z3A.38 38 weeks gestation of pregnancy
CPT/HCPCS: 1967; 36415; 80053; 80307; 81005; 83615; 84550; 85025; 85027; 86592; 86850; 86900; 86901; 88307; 94760; J2300; J2550; J2590; J2795; J3010; J3490